=== PATIENT | female | born 1995 | race Caucasian/White ===

== ENCOUNTER 2019-11-30 18:55 | Emergency (ER) | payer MEDICAID, OTHER ==
[2019-11-30] MEDS ORDERED: Orphenadrine 60 MG/2 ML Inj IM ONE (19:30)
[2019-11-30] MEDS ORDERED: Ketorolac 60 MG/2 ML SDV IM ONE (19:30)
--- NOTE | 2019-11-30 19:36 | EDM.PDOC ---
ED HPI GENERAL MEDICAL PROBLEM - General Chief Complaint: Headache Stated Complaint: Headache Time Seen by Provider: 11/30/19 19:15 Source of Information: Reports: Patient History Limitations: Reports: No Limitations - History of Present Illness INITIAL COMMENTS - FREE TEXT/NARRATIVE: Patient presents today with complaints of a headache. 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 She has chronic headaches, sometimes worse than others. Often able to control them with medical marijuana and is on nortriptyline. Tried that today without success. [place], trying to avoid the sun, sitting in a shaded area. No new triggers or head trauma. States started on the right side of her head, spread down her neck and now in to her upper back. Was pushing fluids today due to the heat so does not feel she is dehydrated. No nausea. No light sensitivity. Onset: Today, Gradual Duration: Hour(s):, Getting Worse Location: Reports: Head Quality: Reports: Ache, Throbbing Severity: Severe Improves with: Reports: None Worsens with: Reports: None Associated Symptoms: Denies: Confusion, Cough, Fever/Chills, Loss of Appetite, Nausea/Vomiting, Shortness of Breath Treatments [employer]: Reports: Other (see below) (medical marijuana) headache Pain Score (Numeric/FACES): 7 - Related Data Allergies Allergy/AdvReac Type Severity Reaction Status Date / Time diphenhydramine Allergy Leg Cramps Verified 11/30/19 19:38 [From Benadryl] Past Medical History Neurological History: Reports: Headaches, Chronic 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 Social & Family History - Tobacco Use Smoking Status *Q: Unknown Ever Smoked - Recreational Drug Use Recreational Drug Type: Reports: Marijuana/Hashish ED ROS GENERAL - Review of Systems Review Of Systems: See Below Constitutional: Denies: Fever, Chills, Malaise, Weakness, Decreased Appetite HEENT: Denies: Ear Pain, Rhinitis, Sinus Problem, Throat Pain, Vertigo Respiratory: Denies: Shortness of Breath, Cough Cardiovascular: Denies: Chest Pain, Edema, Lightheadedness Endocrine: Denies: Fatigue GI/Abdominal: Denies: Abdominal Pain, Nausea, Vomiting : Reports: No Symptoms Musculoskeletal: Reports: Neck Pain Neurological: Reports: Headache Psychiatric: Reports: No Symptoms - Physical Exam Exam: See Below Exam Limited By: No Limitations General Appearance: Alert, WD/WN, No Apparent Distress Eye Exam: Bilateral Eye: EOMI, PERRL Ears: Normal External Exam, Normal TMs Nose: Normal Inspection, Normal Mucosa, No Blood Throat/Mouth: Normal Inspection, Normal Oropharynx Head Exam: Normocephalic Neck: Normal Inspection, Supple, Non-Tender, Full Range of Motion, Other (tender bilaterally to neck and trapezius area) Respiratory/Chest: No Respiratory Distress, Lungs Clear, Normal Breath Sounds Cardiovascular: Regular Rate, Rhythm GI/Abdominal: Normal Bowel Sounds, Soft, Non-Tender Neuro Exam (Abbreviated): Alert, Oriented, CN II-XII Intact, Normal Cognition, Normal Gait, Normal Reflexes, No Motor/Sensory Deficits Extremities: Normal Inspection, No Pedal Edema Skin Exam: Warm, Dry Course - Vital Signs Last Recorded V/S: Last Vital Signs Temp 98.9 F 11/30/19 19:00 Pulse 102 H 11/30/19 19:00 Resp 16 11/30/19 19:00 BP 109/73 11/30/19 19:00 Pulse Ox 97 11/30/19 19:00 - Orders/Labs/Meds Meds: Medications Discontinued Medications Generic Name Dose Route Start Last Admin Trade Name Freq PRN Reason Stop Dose Admin Ketorolac Tromethamine 60 mg 11/30/19 19:30 Toradol IM 11/30/19 19:31 ONETIME ONE Orphenadrine Citrate 60 mg 11/30/19 19:30 Norflex IM 11/30/19 19:31 ONETIME ONE - Re-Assessments/Exams Free Text/Narrative Re-Assessment/Exam: 11/30/19 19:48 Toradol and Norflex given. Departure - Departure Time of Disposition: 19:48 Disposition: Home, Self-Care 01 Condition: Good Clinical Impression: Tension-type headache - Discharge Information *PRESCRIPTION DRUG MONITORING PROGRAM REVIEWED*: No *COPY OF PRESCRIPTION DRUG MONITORING REPORT IN PATIENT LINDEN: No Instructions: Tension Headache, Adult, [id number] Referrals: PCP,None [Primary Care Provider] - Forms: ED Department Discharge Additional Instructions: 1. Rest 2. Push fluids 3. Usual meds for headaches 4. Follow up with primary care provider if persisting headache Sepsis Event Note (ED) - Focused Exam Vital Signs: Vital Signs Temp Pulse Resp BP Pulse Ox 06/27/20 19:00 98.9 F 102 H 16 109/73 97
== END 2019-11-30 20:09 | disposition home or self-care (01) ==
LOC: VM.ED 18:55
DX: G44.209 Tension-type headache, unspecified, not intractable (principal); Z88.8 Allergy status to other drugs, medicaments and biological substances
CPT/HCPCS: 96372; 99284; J1885; J2360